=== PATIENT | male | born 1980 | race Caucasian/White ===

== ENCOUNTER 2023-08-03 18:47 | Inpatient (IN) ==
[2023-08-03] MEDS ORDERED: IOPAMIDOL 100 ML BOTTLE IV ONE (18:48)
[2023-08-03] MEDS: ONDANSETRON 4 MG/2 ML VIAL IV ONE (19:20)
[2023-08-03] MEDS: 0.9 % SODIUM CHLORIDE 1,000 ML IV ONE (19:20)
[2023-08-03] MEDS: morphine 4 MG/ML VIAL IV ONE (19:22)
[2023-08-03 19:42] LABS: Basophils # (Auto) 0.03 K/mcL (0.00-0.30); Basophils % (Auto) 0.1 % (0.0-2.0); Eosinophils # (Auto) 0.22 K/mcL (0.00-0.70); Eosinophils % (Auto) 0.8 % (0.0-7.0); Hematocrit 50.8 % (40.1-51.0); Hemoglobin 16.3 g/dL (13.7-17.5); Lymphocytes # (Auto) 0.94 K/mcL (1.50-4.80); Lymphocytes % (Auto) 3.4 % (15.5-49.0); Mean Cell Volume 88.5 fL (80.0-100.0); Mean Corpuscular HGB Conc 32.1 g/dL (31.0-36.0); Mean Platelet Volume 10.6 fL (8.8-12.5); Monocytes # (Auto) 1.28 K/mcL (0.10-0.90); Monocytes % (Auto) 4.6 % (1.0-12.0); Neutrophils % (Auto) 90.8 % (38.0-78.0); Platelet Count 370 K/mcL (140-440); RBC 5.74 M/mcL (4.63-6.08); WBC 27.7 K/mcL (4.5-11.0)
[2023-08-03 19:46] LABS: POC Calcium, Ionized 1.09 (1.16-1.32); POC Potassium 4.7 (3.3-5.1)
[2023-08-03 20:02] LABS: ALT/SGPT 26 U/L (<40); AST/SGOT 30 U/L (<40); Albumin 3.5 gm/dL (3.2-5.2); Albumin/Globulin Ratio 0.7 (1.0-2.3); Alkaline Phosphatase 202 U/L (39-117); Bilirubin,Total 0.3 mg/dL (0.1-1.0); Blood Urea Nitrogen 10 mg/dL (6-20); Calcium 9.4 mg/dL (8.6-10.4); Carbon Dioxide 20 mmol/L (22-30); Chloride 105 mmol/L (96-108); Globulin 4.7 gm/dL (2.2-3.7); Glomerular Filtration Rate 90; Glucose 130 mg/dL (70-105)
[2023-08-03 22:12] LABS: Appearance,Urine Slightly Cloudy (Clear); Bacteria,Urine 0 /hpf (0); Bilirubin,Urine Negative (Negative); Color,Urine Yellow; Culture Indicated,Urine Yes; Glucose,Urine (UA) Negative (Negative); Ketones,Urine Negative (Negative); Leukocyte Esterase,Urine Small /uL (Negative); Mucus,Urine Mod /hpf; Nitrate,Urine Negative (Negative); PH,Urine 5.5 (5.0-9.0); Protein,Urine 30 mg/dL (Negative); Specific Gravity,Urine <= 1.005 (1.000-1.035); Urine Blood Moderate ery/mcL (Negative); Urine RBC 0 /hpf (0-3); Urine Squamous Epithelial Cell 1 /hpf (0-4); Urine WBC > 182 /hpf (0-4); Urobilinogen,Urine Normal
[2023-08-03] MEDS ORDERED: BISACODYL 10 MG SUPP.RECT PR PRN (23:28)
[2023-08-03] MEDS ORDERED: MAGNESIUM SULFATE 2 GM/50 ML BAG IV PRN (23:28)
[2023-08-03] MEDS ORDERED: ONDANSETRON 4 MG/2 ML VIAL IV PRN (23:28)
[2023-08-03] MEDS ORDERED: POTASSIUM CHLORIDE 40 MEQ in DEXTROSE 5% IN WATER 500 ML IV PRN (23:28)
[2023-08-03] MEDS: LACTATED RINGERS 1,000 ML IV SCH (23:31)
[2023-08-04 00:13] LABS: C-Reactive Protein 7.65 mg/dL (0.03-0.80)
[2023-08-04] MEDS: ACETAMINOPHEN 650 MG/65 ML BAG IV PRN (01:20)
[2023-08-04] MEDS: ACETAMINOPHEN 1,000 MG/100 ML BAG IV ONE (01:27)
[2023-08-04] MEDS: 0.9 % SODIUM CHLORIDE 10 ML SYRINGE IV SCH ×2 (05:43→22:04)
[2023-08-04 06:45] LABS: Basophils # (Auto) 0.05 K/mcL (0.00-0.30); Basophils % (Auto) 0.3 % (0.0-2.0); Eosinophils # (Auto) 0.47 K/mcL (0.00-0.70); Eosinophils % (Auto) 3.3 % (0.0-7.0); Hematocrit 46.3 % (40.1-51.0); Hemoglobin 14.4 g/dL (13.7-17.5); Lymphocytes % (Auto) 11.8 % (15.5-49.0); Mean Cell Volume 91.1 fL (80.0-100.0); Mean Corpuscular HGB Conc 31.1 g/dL (31.0-36.0); Mean Platelet Volume 10.7 fL (8.8-12.5); Monocytes # (Auto) 0.78 K/mcL (0.10-0.90); Monocytes % (Auto) 5.4 % (1.0-12.0); Neutrophils % (Auto) 78.9 % (38.0-78.0); Platelet Count 318 K/mcL (140-440); RBC 5.08 M/mcL (4.63-6.08); Red Cell Distribution Width 15.1 % (11.5-14.5); WBC 14.5 K/mcL (4.5-11.0)
[2023-08-04 06:59] LABS: ALT/SGPT 35 U/L (<40); AST/SGOT 42 U/L (<40); Albumin/Globulin Ratio 0.7 (1.0-2.3); Alkaline Phosphatase 184 U/L (39-117); Bilirubin,Direct < 0.2 mg/dL (0-0.3); Bilirubin,Total 0.4 mg/dL (0.1-1.0); Blood Urea Nitrogen 11 mg/dL (6-20); Carbon Dioxide 20 mmol/L (22-30); Chloride 103 mmol/L (96-108); Globulin 4.2 gm/dL (2.2-3.7); Glomerular Filtration Rate 107; Glucose 78 mg/dL (70-105); Lactate Dehydrogenase 156 U/L (135-225); Phosphorous 3.5 mg/dL (2.5-4.5); Triglycerides 144 mg/dL (<150); Uric Acid 6.8 mg/dL (2.5-8.0)
[2023-08-04] MEDS: HYDROmorphone 0.5 MG/0.5 ML SYRINGE IV PRN (08:56)
[2023-08-04] MEDS: ACETAMINOPHEN 325 MG TABLET PO PRN (08:57)
[2023-08-04] MEDS: MULTIVIT,THER IRON,CA,FA & MIN 1 TABLET PO SCH (08:57)
[2023-08-04] MEDS: ENOXAPARIN 40 MG/0.4 ML SYRINGE SQ SCH (08:57)
[2023-08-04] MEDS ORDERED: 0.9 % SODIUM CHLORIDE 10 ML SYRINGE IV PRN (12:46)
[2023-08-04] MEDS ORDERED: NITROGLYCERIN 0.4 MG TAB.SUBL SL PRN (13:13)
[2023-08-04] MEDS ORDERED: HYDROcodone/APAP 10/325MG TABLET PO PRN (13:13)
[2023-08-04] MEDS ORDERED: ERTAPENEM 1 GM VIAL IV SCH (13:15)
[2023-08-04] MEDS: ERTAPENEM 1 GM in 0.9 % SODIUM CHLORIDE 50 ML IV SCH (14:19)
[2023-08-04] MEDS: ONDANSETRON 4 MG ODT TABLET SL PRN (18:05)
[2023-08-04] MEDS: traZODone HCL 50 MG TABLET PO SCH (22:03)
[2023-08-04] MEDS: METOPROLOL TARTRATE 25 MG TABLET PO SCH (22:03)
[2023-08-04] MEDS: GABAPENTIN 300 MG CAPSULE PO SCH (22:04)
[2023-08-05] MEDS: SERTRALINE 100 MG TABLET PO SCH (08:11)
[2023-08-05] MEDS: PANTOPRAZOLE 40 MG TABLET PO SCH (08:11)
[2023-08-05] MEDS: FOLIC ACID 1 MG TABLET PO SCH (08:11)
[2023-08-05 08:45] LABS: Basophils # (Auto) 0.02 K/mcL (0.00-0.30); Basophils % (Auto) 0.2 % (0.0-2.0); Eosinophils # (Auto) 0.32 K/mcL (0.00-0.70); Eosinophils % (Auto) 3.3 % (0.0-7.0); Hematocrit 36.1 % (40.1-51.0); Hemoglobin 11.4 g/dL (13.7-17.5); Lymphocytes # (Auto) 1.38 K/mcL (1.50-4.80); Lymphocytes % (Auto) 14.2 % (15.5-49.0); Mean Cell Volume 90.3 fL (80.0-100.0); Mean Corpuscular HGB Conc 31.6 g/dL (31.0-36.0); Mean Platelet Volume 10.4 fL (8.8-12.5); Monocytes # (Auto) 0.79 K/mcL (0.10-0.90); Monocytes % (Auto) 8.1 % (1.0-12.0); Platelet Count 275 K/mcL (140-440); Red Cell Distribution Width 14.8 % (11.5-14.5); WBC 9.7 K/mcL (4.5-11.0)
[2023-08-05 09:33] LABS: ALT/SGPT 26 U/L (<40); AST/SGOT 23 U/L (<40); Albumin 2.7 gm/dL (3.2-5.2); Albumin/Globulin Ratio 0.9 (1.0-2.3); Alkaline Phosphatase 133 U/L (39-117); Bilirubin,Direct < 0.2 mg/dL (0-0.3); Bilirubin,Total 0.3 mg/dL (0.1-1.0); Blood Urea Nitrogen 17 mg/dL (6-20); Carbon Dioxide 23 mmol/L (22-30); Chloride 105 mmol/L (96-108); Glomerular Filtration Rate 121; Glucose 69 mg/dL (70-105); Lactate Dehydrogenase 69 U/L (135-225); Triglycerides 162 mg/dL (<150); Uric Acid 5.5 mg/dL (2.5-8.0)
[2023-08-06 05:52] LABS: Basophils # (Auto) 0.03 K/mcL (0.00-0.30); Basophils % (Auto) 0.3 % (0.0-2.0); Eosinophils % (Auto) 3.6 % (0.0-7.0); Hematocrit 39.8 % (40.1-51.0); Hemoglobin 12.4 g/dL (13.7-17.5); Lymphocytes # (Auto) 1.86 K/mcL (1.50-4.80); Lymphocytes % (Auto) 16.6 % (15.5-49.0); Mean Cell Volume 91.5 fL (80.0-100.0); Mean Corpuscular HGB Conc 31.2 g/dL (31.0-36.0); Mean Platelet Volume 10.1 fL (8.8-12.5); Monocytes # (Auto) 0.83 K/mcL (0.10-0.90); Monocytes % (Auto) 7.4 % (1.0-12.0); Neutrophils % (Auto) 71.9 % (38.0-78.0); Platelet Count 278 K/mcL (140-440); RBC 4.35 M/mcL (4.63-6.08); Red Cell Distribution Width 14.3 % (11.5-14.5); WBC 11.2 K/mcL (4.5-11.0)
[2023-08-06 06:14] LABS: ALT/SGPT 15 U/L (<40); AST/SGOT 16 U/L (<40); Albumin/Globulin Ratio 0.9 (1.0-2.3); Alkaline Phosphatase 161 U/L (39-117); Bilirubin,Direct < 0.2 mg/dL (0-0.3); Bilirubin,Total < 0.2 mg/dL (0.1-1.0); Blood Urea Nitrogen 16 mg/dL (6-20); Calcium 8.5 mg/dL (8.6-10.4); Carbon Dioxide 24 mmol/L (22-30); Chloride 102 mmol/L (96-108); Globulin 3.4 gm/dL (2.2-3.7); Glomerular Filtration Rate 114; Glucose 92 mg/dL (70-105); Lactate Dehydrogenase 91 U/L (135-225); Triglycerides 207 mg/dL (<150); Uric Acid 5.3 mg/dL (2.5-8.0)
[2023-08-06] MEDS: HYDROmorphone 0.5 MG/0.5 ML SYRINGE IV PRN (14:48)
[2023-08-06] MEDS: oxyCODONE IR 5 MG TABLET PO PRN (17:17)
== END 2023-08-07 11:00 | DRG 389 ==
LOC: ED 18:47 → MEDSUR 23:24
PROVIDERS: ADMIT Internal Medicine; ATTEND Internal Medicine

== ENCOUNTER 2023-08-14 13:10 | Inpatient (IN) ==
[2023-08-14] MEDS ORDERED: IOPAMIDOL 100 ML BOTTLE IV ONE (13:11)
[2023-08-14] MEDS: morphine 4 MG/ML VIAL IV ONE ×2 (15:53→21:20)
[2023-08-14 16:20] LABS: Basophils # (Auto) 0.05 K/mcL (0.00-0.30); Basophils % (Auto) 0.2 % (0.0-2.0); Eosinophils # (Auto) 0.16 K/mcL (0.00-0.70); Eosinophils % (Auto) 0.8 % (0.0-7.0); Hematocrit 42.3 % (40.1-51.0); Hemoglobin 13.4 g/dL (13.7-17.5); Lymphocytes # (Auto) 1.15 K/mcL (1.50-4.80); Lymphocytes % (Auto) 5.7 % (15.5-49.0); Mean Cell Volume 89.4 fL (80.0-100.0); Mean Corpuscular HGB Conc 31.7 g/dL (31.0-36.0); Mean Platelet Volume 9.9 fL (8.8-12.5); Monocytes # (Auto) 0.98 K/mcL (0.10-0.90); Monocytes % (Auto) 4.9 % (1.0-12.0); Neutrophils % (Auto) 88.1 % (38.0-78.0); Platelet Count 427 K/mcL (140-440); RBC 4.73 M/mcL (4.63-6.08); Red Cell Distribution Width 14.6 % (11.5-14.5); WBC 20.1 K/mcL (4.5-11.0)
[2023-08-14 16:34] LABS: Blood Urea Nitrogen 9 mg/dL (6-20); Calcium 8.6 mg/dL (8.6-10.4); Carbon Dioxide 24 mmol/L (22-30); Chloride 100 mmol/L (96-108); Glomerular Filtration Rate 102; Glucose 78 mg/dL (70-105)
[2023-08-14 18:29] LABS: Appearance,Urine Turbid (Clear); Bacteria,Urine Many /hpf (0); Bilirubin,Urine Negative (Negative); Color,Urine Yellow; Culture Indicated,Urine Yes; Glucose,Urine (UA) Negative (Negative); Ketones,Urine Negative (Negative); Leukocyte Esterase,Urine Moderate /uL (Negative); Nitrate,Urine Negative (Negative); PH,Urine 5.5 (5.0-9.0); Protein,Urine 100 mg/dL (Negative); Urine Blood Moderate ery/mcL (Negative); Urine RBC 1 /hpf (0-3); Urine Squamous Epithelial Cell 1 /hpf (0-4); Urine WBC > 182 /hpf (0-4); Urobilinogen,Urine Normal
[2023-08-14] MEDS: cefTRIAXone 1 GM VIAL IV ONE (19:44)
[2023-08-14] MEDS: ONDANSETRON 4 MG/2 ML VIAL IV ONE (21:21)
[2023-08-14] MEDS ORDERED: ACETAMINOPHEN 325 MG TABLET PO PRN (22:14)
[2023-08-14] MEDS ORDERED: PROCHLORPERAZINE 10 MG/2 ML VIAL IV PRN (22:14)
[2023-08-14] MEDS ORDERED: PROMETHAZINE 25 MG/ML VIAL IV PRN (22:14)
[2023-08-14] MEDS ORDERED: IPRATROPIUM/ALBUTEROL 3 ML AMPUL.NEB NEB PRN (22:14)
[2023-08-14] MEDS: 0.9 % SODIUM CHLORIDE 10 ML SYRINGE IV SCH (22:18)
[2023-08-14] MEDS: DOCUSATE SODIUM 100 MG CAPSULE PO SCH (22:27)
[2023-08-14] MEDS: SENNOSIDES 1 TABLET PO SCH (22:27)
[2023-08-14] MEDS: PIPERACILLIN SODIUM/TAZOBACTAM 3.375 GM in DEXTROSE 5% IN WATER 50 ML IV SCH (23:18)
[2023-08-15] MEDS: morphine 4 MG/ML VIAL IV PRN (01:01)
[2023-08-15] MEDS: morphine 4 MG/ML VIAL ONE ×2 (01:01→05:05)
[2023-08-15 06:40] LABS: Basophils # (Auto) 0.05 K/mcL (0.00-0.30); Basophils % (Auto) 0.5 % (0.0-2.0); Eosinophils # (Auto) 0.31 K/mcL (0.00-0.70); Eosinophils % (Auto) 2.9 % (0.0-7.0); Hematocrit 40.3 % (40.1-51.0); Hemoglobin 12.9 g/dL (13.7-17.5); Lymphocytes # (Auto) 1.06 K/mcL (1.50-4.80); Lymphocytes % (Auto) 9.8 % (15.5-49.0); Mean Cell Volume 89.2 fL (80.0-100.0); Mean Platelet Volume 9.7 fL (8.8-12.5); Monocytes # (Auto) 0.77 K/mcL (0.10-0.90); Monocytes % (Auto) 7.1 % (1.0-12.0); Neutrophils % (Auto) 79.4 % (38.0-78.0); Platelet Count 336 K/mcL (140-440); RBC 4.52 M/mcL (4.63-6.08); Red Cell Distribution Width 14.6 % (11.5-14.5); WBC 10.9 K/mcL (4.5-11.0)
[2023-08-15 07:01] LABS: ALT/SGPT 112 U/L (<40); AST/SGOT 152 U/L (<40); Albumin/Globulin Ratio 0.8 (1.0-2.3); Alkaline Phosphatase 340 U/L (39-117); Bilirubin,Total 0.7 mg/dL (0.1-1.0); Blood Urea Nitrogen 8 mg/dL (6-20); Calcium 8.6 mg/dL (8.6-10.4); Carbon Dioxide 26 mmol/L (22-30); Chloride 101 mmol/L (96-108); Globulin 3.6 gm/dL (2.2-3.7); Glomerular Filtration Rate 107; Glucose 83 mg/dL (70-105)
[2023-08-15] MEDS: ENOXAPARIN 40 MG/0.4 ML SYRINGE SQ SCH (09:01)
[2023-08-15] MEDS: ONDANSETRON 4 MG/2 ML VIAL IV PRN (12:32)
[2023-08-15] MEDS ORDERED: NITROGLYCERIN 0.4 MG TAB.SUBL SL PRN (12:44)
[2023-08-15] MEDS: PIPERACILLIN SODIUM/TAZOBACTAM 3.375 GM in DEXTROSE 5% IN WATER 100 ML IV SCH (13:45)
[2023-08-15] MEDS: oxyCODONE/APAP 10/325MG TABLET PO PRN (17:29)
[2023-08-15] MEDS ORDERED: hydrALAZINE 20 MG/ML VIAL IV PRN (20:13)
[2023-08-15] MEDS: METOPROLOL TARTRATE 25 MG TABLET PO SCH (21:38)
[2023-08-15] MEDS: GABAPENTIN 300 MG CAPSULE PO SCH (21:38)
[2023-08-15] MEDS: KETOROLAC 30 MG/ML VIAL IV PRN (21:45)
[2023-08-15] MEDS: traZODone HCL 50 MG TABLET PO SCH (22:24)
[2023-08-16 07:11] LABS: Basophils # (Auto) 0.06 K/mcL (0.00-0.30); Basophils % (Auto) 0.5 % (0.0-2.0); Eosinophils # (Auto) 0.42 K/mcL (0.00-0.70); Eosinophils % (Auto) 3.7 % (0.0-7.0); Hematocrit 41.3 % (40.1-51.0); Hemoglobin 12.9 g/dL (13.7-17.5); Lymphocytes # (Auto) 1.35 K/mcL (1.50-4.80); Mean Cell Volume 90.4 fL (80.0-100.0); Mean Corpuscular HGB Conc 31.2 g/dL (31.0-36.0); Mean Platelet Volume 10.1 fL (8.8-12.5); Monocytes # (Auto) 0.73 K/mcL (0.10-0.90); Monocytes % (Auto) 6.5 % (1.0-12.0); Platelet Count 432 K/mcL (140-440); RBC 4.57 M/mcL (4.63-6.08); Red Cell Distribution Width 14.4 % (11.5-14.5); WBC 11.2 K/mcL (4.5-11.0)
[2023-08-16 07:23] LABS: ALT/SGPT 96 U/L (<40); AST/SGOT 82 U/L (<40); Albumin 3.2 gm/dL (3.2-5.2); Albumin/Globulin Ratio 0.9 (1.0-2.3); Alkaline Phosphatase 356 U/L (39-117); Bilirubin,Total 0.2 mg/dL (0.1-1.0); Blood Urea Nitrogen 14 mg/dL (6-20); Calcium 8.8 mg/dL (8.6-10.4); Carbon Dioxide 29 mmol/L (22-30); Chloride 101 mmol/L (96-108); Globulin 3.7 gm/dL (2.2-3.7); Glomerular Filtration Rate 90; Glucose 103 mg/dL (70-105)
[2023-08-16] MEDS: PANTOPRAZOLE 40 MG TABLET PO SCH (07:30)
[2023-08-16] MEDS: FOLIC ACID 1 MG TABLET PO SCH (09:26)
[2023-08-16] MEDS: SERTRALINE 100 MG TABLET PO SCH (09:26)
[2023-08-17 07:30] LABS: Basophils # (Auto) 0.06 K/mcL (0.00-0.30); Basophils % (Auto) 0.5 % (0.0-2.0); Eosinophils # (Auto) 0.61 K/mcL (0.00-0.70); Eosinophils % (Auto) 4.7 % (0.0-7.0); Hematocrit 40.6 % (40.1-51.0); Hemoglobin 12.6 g/dL (13.7-17.5); Lymphocytes # (Auto) 1.76 K/mcL (1.50-4.80); Lymphocytes % (Auto) 13.5 % (15.5-49.0); Mean Cell Volume 91.6 fL (80.0-100.0); Mean Platelet Volume 9.9 fL (8.8-12.5); Monocytes # (Auto) 0.81 K/mcL (0.10-0.90); Monocytes % (Auto) 6.2 % (1.0-12.0); Neutrophils % (Auto) 74.9 % (38.0-78.0); Platelet Count 412 K/mcL (140-440); RBC 4.43 M/mcL (4.63-6.08); Red Cell Distribution Width 14.4 % (11.5-14.5)
[2023-08-17 07:43] LABS: ALT/SGPT 88 U/L (<40); AST/SGOT 97 U/L (<40); Albumin 3.2 gm/dL (3.2-5.2); Albumin/Globulin Ratio 0.9 (1.0-2.3); Alkaline Phosphatase 342 U/L (39-117); Bilirubin,Total < 0.2 mg/dL (0.1-1.0); Blood Urea Nitrogen 14 mg/dL (6-20); Calcium 8.6 mg/dL (8.6-10.4); Carbon Dioxide 28 mmol/L (22-30); Chloride 102 mmol/L (96-108); Globulin 3.7 gm/dL (2.2-3.7); Glomerular Filtration Rate 80; Glucose 72 mg/dL (70-105)
[2023-08-17] MEDS: LIDOCAINE 4% TOP PATCH TOPICAL SCH (11:43)
[2023-08-17] MEDS: KETOROLAC 30 MG/ML VIAL IV PRN (18:33)
[2023-08-18 05:46] LABS: Basophils # (Auto) 0.08 K/mcL (0.00-0.30); Basophils % (Auto) 0.6 % (0.0-2.0); Eosinophils # (Auto) 0.67 K/mcL (0.00-0.70); Eosinophils % (Auto) 5.2 % (0.0-7.0); Hemoglobin 11.9 g/dL (13.7-17.5); Lymphocytes # (Auto) 1.87 K/mcL (1.50-4.80); Lymphocytes % (Auto) 14.6 % (15.5-49.0); Mean Cell Volume 91.6 fL (80.0-100.0); Mean Corpuscular HGB Conc 31.3 g/dL (31.0-36.0); Mean Platelet Volume 9.7 fL (8.8-12.5); Monocytes # (Auto) 0.78 K/mcL (0.10-0.90); Monocytes % (Auto) 6.1 % (1.0-12.0); Neutrophils % (Auto) 73.2 % (38.0-78.0); Platelet Count 390 K/mcL (140-440); RBC 4.15 M/mcL (4.63-6.08); Red Cell Distribution Width 14.5 % (11.5-14.5); WBC 12.9 K/mcL (4.5-11.0)
[2023-08-18 06:28] LABS: ALT/SGPT 53 U/L (<40); AST/SGOT 33 U/L (<40); Albumin 3.1 gm/dL (3.2-5.2); Albumin/Globulin Ratio 0.9 (1.0-2.3); Alkaline Phosphatase 259 U/L (39-117); Bilirubin,Total < 0.2 mg/dL (0.1-1.0); Blood Urea Nitrogen 12 mg/dL (6-20); Calcium 8.5 mg/dL (8.6-10.4); Carbon Dioxide 27 mmol/L (22-30); Chloride 103 mmol/L (96-108); Globulin 3.3 gm/dL (2.2-3.7); Glomerular Filtration Rate 102; Glucose 81 mg/dL (70-105)
[2023-08-18] MEDS ORDERED: LIDOCAINE 4% TOP PATCH TOPICAL SCH (10:00)
== END 2023-08-18 11:04 | DRG 689 ==
LOC: ED 13:10 → MEDSUR 21:54
PROVIDERS: ADMIT Internal Medicine; ATTEND Internal Medicine

== ENCOUNTER 2024-01-07 21:41 | Inpatient (IN) ==
[2024-01-07] MEDS ORDERED: IOPAMIDOL 100 ML BOTTLE IV ONE (21:42)
[2024-01-07] MEDS: SODIUM CHLORIDE IV ONE (22:41)
[2024-01-07] MEDS: morphine 4 MG/ML VIAL IV ONE (23:00)
[2024-01-07] MEDS: ONDANSETRON 4 MG/2 ML VIAL IV ONE (23:00)
[2024-01-07 23:08] LABS: Basophils # (Auto) 0.06 K/mcL (0.00-0.30); Basophils % (Auto) 0.2 % (0.0-2.0); Eosinophils # (Auto) 0.65 K/mcL (0.00-0.70); Eosinophils % (Auto) 2.7 % (0.0-7.0); Hematocrit 32.7 % (40.1-51.0); Hemoglobin 10.9 g/dL (13.7-17.5); Lymphocytes # (Auto) 1.94 K/mcL (1.50-4.80); Lymphocytes % (Auto) 7.9 % (15.5-49.0); Mean Cell Volume 83.2 fL (80.0-100.0); Mean Corpuscular HGB Conc 33.3 g/dL (31.0-36.0); Mean Platelet Volume 9.8 fL (8.8-12.5); Monocytes # (Auto) 1.29 K/mcL (0.10-0.90); Monocytes % (Auto) 5.3 % (1.0-12.0); Neutrophils % (Auto) 83.7 % (38.0-78.0); Platelet Count 570 K/mcL (140-440); RBC 3.93 M/mcL (4.63-6.08); Red Cell Distribution Width 15.6 % (11.5-14.5); WBC 24.4 K/mcL (4.5-11.0)
[2024-01-07] MEDS: VANCOMYCIN 2,000 MG in 0.9 % SODIUM CHLORIDE 500 ML IV ONE (23:20)
[2024-01-07 23:22] LABS: Creatine Kinase 33 U/L (24-195)
[2024-01-07 23:27] LABS: ALT/SGPT 69 U/L (<40); AST/SGOT 59 U/L (<40); Albumin 3.5 gm/dL (3.2-5.2); Albumin/Globulin Ratio 0.8 (1.0-2.3); Alkaline Phosphatase 168 U/L (39-117); Bilirubin,Total < 0.2 mg/dL (0.1-1.0); Blood Urea Nitrogen 19 mg/dL (6-20); Calcium 8.7 mg/dL (8.6-10.4); Carbon Dioxide 25 mmol/L (22-30); Chloride 103 mmol/L (96-108); Globulin 4.5 gm/dL (2.2-3.7); Glomerular Filtration Rate 80; Glucose 106 mg/dL (70-105); Potassium 3.6 mmol/L (3.3-5.1); Prothrombin Time 13.4 sec (11.9-14.5); Sodium 140 mmol/L (133-145)
[2024-01-08 00:23] LABS: Appearance,Urine Clear (Clear); Bacteria,Urine Mod /hpf (0); Bilirubin,Urine Negative (Negative); Color,Urine Yellow; Culture Indicated,Urine Yes; Glucose,Urine (UA) Negative (Negative); Ketones,Urine Negative (Negative); Leukocyte Esterase,Urine Moderate /uL (Negative); Nitrate,Urine Negative (Negative); Protein,Urine >=300 mg/dL (Negative); Specific Gravity,Urine 1.025 (1.000-1.035); Urine Blood Large ery/mcL (Negative); Urine RBC 20 /hpf (0-3); Urine Squamous Epithelial Cell 0 /hpf (0-4); Urine WBC > 182 /hpf (0-4); Urobilinogen,Urine Normal
[2024-01-08] MEDS: METOCLOPRAMIDE 10 MG/2 ML VIAL IV ONE (01:00)
[2024-01-08] MEDS: morphine 4 MG/ML VIAL IV ONE (01:00)
[2024-01-08] MEDS ORDERED: ONDANSETRON 4 MG/2 ML VIAL IV PRN (03:18)
[2024-01-08] MEDS: CEFEPIME 2 GM VIAL IV ONE (04:09)
[2024-01-08] MEDS: morphine 4 MG/ML VIAL IV PRN (04:38)
[2024-01-08] MEDS: 0.9 % SODIUM CHLORIDE 1,000 ML IV SCH (04:41)
[2024-01-08] MEDS ORDERED: PROMETHAZINE 25 MG TABLET PO PRN (08:04)
[2024-01-08] MEDS ORDERED: NITROGLYCERIN 0.4 MG TAB.SUBL SL PRN (08:04)
[2024-01-08] MEDS ORDERED: CALCIUM CARBONATE 500 MG TAB.CHEW CHEWED PRN (08:12)
[2024-01-08] MEDS ORDERED: ONDANSETRON 4 MG ODT TABLET SL PRN (08:14)
[2024-01-08] MEDS ORDERED: ACETAMINOPHEN 325 MG TABLET PO PRN (08:22)
[2024-01-08] MEDS ORDERED: IPRATROPIUM/ALBUTEROL 3 ML AMPUL.NEB NEB PRN (08:22)
[2024-01-08] MEDS: LACTOBACILLUS 1 CAPSULE PO SCH (08:42)
[2024-01-08] MEDS: SERTRALINE 50 MG TABLET PO SCH (08:42)
[2024-01-08] MEDS: METOCLOPRAMIDE 10 MG TABLET PO SCH (08:43)
[2024-01-08] MEDS: morphine 30 MG TAB.SR.12H PO SCH (08:43)
[2024-01-08] MEDS: FOLIC ACID 1 MG TABLET PO SCH (08:43)
[2024-01-08] MEDS: DOCUSATE SODIUM 100 MG CAPSULE PO SCH (08:43)
[2024-01-08] MEDS: METOPROLOL TARTRATE 25 MG TABLET PO SCH (08:44)
[2024-01-08] MEDS: ENOXAPARIN 40 MG/0.4 ML SYRINGE SQ SCH (08:44)
[2024-01-08] MEDS: GABAPENTIN 300 MG CAPSULE PO SCH (08:44)
[2024-01-08] MEDS: PIPERACILLIN SODIUM/TAZOBACTAM 3.375 GM in DEXTROSE 5% IN WATER 50 ML IV ONE (08:45)
[2024-01-08] MEDS: PANTOPRAZOLE 40 MG TABLET PO SCH (08:45)
[2024-01-08] MEDS: FLUCONAZOLE 400 MG/200 ML BAG IV SCH (10:11)
[2024-01-08] MEDS: 0.9 % SODIUM CHLORIDE 10 ML SYRINGE IV SCH (13:15)
[2024-01-08] MEDS: PIPERACILLIN SODIUM/TAZOBACTAM 3.375 GM in DEXTROSE 5% IN WATER 100 ML IV SCH (14:10)
[2024-01-08] MEDS: oxyCODONE/APAP 10/325MG TABLET PO PRN (17:28)
[2024-01-08] MEDS: SENNOSIDES 1 TABLET PO SCH (21:00)
[2024-01-08] MEDS ORDERED: traZODone HCL 50 MG TABLET PO SCH (21:00)
[2024-01-08] MEDS: MELATONIN 3 MG TABLET PO SCH (23:35)
[2024-01-09 06:41] LABS: Basophils # (Auto) 0.05 K/mcL (0.00-0.30); Basophils % (Auto) 0.3 % (0.0-2.0); Eosinophils # (Auto) 1.26 K/mcL (0.00-0.70); Eosinophils % (Auto) 8.8 % (0.0-7.0); Hemoglobin 8.5 g/dL (13.7-17.5); Lymphocytes # (Auto) 1.54 K/mcL (1.50-4.80); Lymphocytes % (Auto) 10.7 % (15.5-49.0); Mean Cell Volume 86.8 fL (80.0-100.0); Mean Corpuscular HGB Conc 31.5 g/dL (31.0-36.0); Mean Platelet Volume 9.8 fL (8.8-12.5); Monocytes # (Auto) 1.05 K/mcL (0.10-0.90); Monocytes % (Auto) 7.3 % (1.0-12.0); Neutrophils % (Auto) 72.8 % (38.0-78.0); Platelet Count 410 K/mcL (140-440); RBC 3.11 M/mcL (4.63-6.08); Red Cell Distribution Width 16.1 % (11.5-14.5); WBC 14.3 K/mcL (4.5-11.0)
[2024-01-09 07:01] LABS: ALT/SGPT 31 U/L (<40); AST/SGOT 26 U/L (<40); Albumin 2.8 gm/dL (3.2-5.2); Albumin/Globulin Ratio 0.8 (1.0-2.3); Alkaline Phosphatase 131 U/L (39-117); Bilirubin,Total 0.2 mg/dL (0.1-1.0); Blood Urea Nitrogen 12 mg/dL (6-20); Calcium 8.4 mg/dL (8.6-10.4); Carbon Dioxide 20 mmol/L (22-30); Chloride 111 mmol/L (96-108); Globulin 3.4 gm/dL (2.2-3.7); Glomerular Filtration Rate 102; Glucose 75 mg/dL (70-105); Potassium 4.1 mmol/L (3.3-5.1); Sodium 141 mmol/L (133-145)
[2024-01-09] MEDS: ONDANSETRON 4 MG/2 ML VIAL IV PRN (09:02)
[2024-01-10 06:32] LABS: Basophils # (Auto) 0.07 K/mcL (0.00-0.30); Basophils % (Auto) 0.4 % (0.0-2.0); Eosinophils % (Auto) 7.7 % (0.0-7.0); Hematocrit 27.9 % (40.1-51.0); Hemoglobin 8.7 g/dL (13.7-17.5); Lymphocytes # (Auto) 1.82 K/mcL (1.50-4.80); Lymphocytes % (Auto) 10.7 % (15.5-49.0); Mean Cell Volume 87.2 fL (80.0-100.0); Mean Corpuscular HGB Conc 31.2 g/dL (31.0-36.0); Monocytes # (Auto) 1.03 K/mcL (0.10-0.90); Monocytes % (Auto) 6.1 % (1.0-12.0); Neutrophils % (Auto) 74.9 % (38.0-78.0); Platelet Count 449 K/mcL (140-440); Red Cell Distribution Width 16.4 % (11.5-14.5)
[2024-01-10 06:46] LABS: Phosphorous 4.2 mg/dL (2.5-4.5)
[2024-01-10 06:48] LABS: ALT/SGPT 21 U/L (<40); AST/SGOT 20 U/L (<40); Albumin/Globulin Ratio 0.8 (1.0-2.3); Alkaline Phosphatase 148 U/L (39-117); Bilirubin,Total < 0.2 mg/dL (0.1-1.0); Blood Urea Nitrogen 10 mg/dL (6-20); Calcium 8.6 mg/dL (8.6-10.4); Carbon Dioxide 23 mmol/L (22-30); Chloride 107 mmol/L (96-108); Globulin 3.6 gm/dL (2.2-3.7); Glomerular Filtration Rate 90; Glucose 78 mg/dL (70-105); Potassium 3.9 mmol/L (3.3-5.1); Sodium 139 mmol/L (133-145)
[2024-01-10] MEDS: morphine 4 MG/ML VIAL IV PRN (11:48)
[2024-01-10] MEDS: KETOROLAC 30 MG/ML VIAL IV PRN (14:07)
[2024-01-10] MEDS: ZOLPIDEM 5 MG TABLET PO PRN (23:34)
[2024-01-11 06:59] LABS: Basophils # (Auto) 0.06 K/mcL (0.00-0.30); Basophils % (Auto) 0.5 % (0.0-2.0); Eosinophils # (Auto) 1.02 K/mcL (0.00-0.70); Eosinophils % (Auto) 9.3 % (0.0-7.0); Hematocrit 27.3 % (40.1-51.0); Hemoglobin 8.5 g/dL (13.7-17.5); Lymphocytes # (Auto) 1.89 K/mcL (1.50-4.80); Lymphocytes % (Auto) 17.2 % (15.5-49.0); Mean Cell Volume 87.5 fL (80.0-100.0); Mean Corpuscular HGB Conc 31.1 g/dL (31.0-36.0); Monocytes % (Auto) 6.4 % (1.0-12.0); Neutrophils % (Auto) 66.4 % (38.0-78.0); Platelet Count 425 K/mcL (140-440); RBC 3.12 M/mcL (4.63-6.08); Red Cell Distribution Width 16.5 % (11.5-14.5)
[2024-01-11 07:34] LABS: Phosphorous 4.8 mg/dL (2.5-4.5)
[2024-01-11 07:53] LABS: ALT/SGPT 20 U/L (<40); AST/SGOT 19 U/L (<40); Albumin/Globulin Ratio 0.8 (1.0-2.3); Alkaline Phosphatase 135 U/L (39-117); Bilirubin,Total < 0.2 mg/dL (0.1-1.0); Blood Urea Nitrogen 10 mg/dL (6-20); Calcium 8.6 mg/dL (8.6-10.4); Carbon Dioxide 23 mmol/L (22-30); Chloride 108 mmol/L (96-108); Globulin 3.6 gm/dL (2.2-3.7); Glomerular Filtration Rate 80; Glucose 75 mg/dL (70-105); Potassium 4.4 mmol/L (3.3-5.1); Sodium 143 mmol/L (133-145)
== END 2024-01-11 13:35 | DRG 871 ==
LOC: ED 21:41 → MEDSUR 01-08 04:18
PROVIDERS: ADMIT Internal Medicine; ATTEND Internal Medicine

== ENCOUNTER 2024-05-26 17:29 | Inpatient (IN) ==
[2024-05-26] MEDS: PIPERACILLIN SODIUM/TAZOBACTAM 3.375 GM in DEXTROSE 5% IN WATER 50 ML IV SCH (18:02)
[2024-05-26 18:09] LABS: Basophils # (Auto) 0.03 K/mcL (0.00-0.30); Basophils % (Auto) 0.2 % (0.0-2.0); Eosinophils # (Auto) 0.29 K/mcL (0.00-0.70); Eosinophils % (Auto) 1.5 % (0.0-7.0); Hematocrit 43.4 % (40.1-51.0); Hemoglobin 13.6 g/dL (13.7-17.5); Lymphocytes # (Auto) 2.49 K/mcL (1.50-4.80); Lymphocytes % (Auto) 13.3 % (15.5-49.0); Mean Cell Volume 78.5 fL (80.0-100.0); Mean Corpuscular HGB Conc 31.3 g/dL (31.0-36.0); Mean Platelet Volume 9.5 fL (8.8-12.5); Monocytes # (Auto) 1.04 K/mcL (0.10-0.90); Monocytes % (Auto) 5.5 % (1.0-12.0); Platelet Count 591 K/mcL (140-440); RBC 5.53 M/mcL (4.63-6.08); Red Cell Distribution Width 17.9 % (11.5-14.5); WBC 18.8 K/mcL (4.5-11.0)
[2024-05-26 18:39] LABS: ALT/SGPT 30 U/L (<40); AST/SGOT 32 U/L (<40); Albumin 3.7 gm/dL (3.2-5.2); Albumin/Globulin Ratio 0.7 (1.0-2.3); Alkaline Phosphatase 233 U/L (39-117); Bilirubin,Total 0.2 mg/dL (0.1-1.0); Blood Urea Nitrogen 27 mg/dL (6-20); Calcium 9.9 mg/dL (8.6-10.4); Carbon Dioxide 20 mmol/L (22-30); Chloride 100 mmol/L (96-108); Globulin 5.1 gm/dL (2.2-3.7); Glomerular Filtration Rate 72; Glucose 98 mg/dL (70-105); Sodium 137 mmol/L (133-145)
[2024-05-26] MEDS: CEFEPIME 2 GM VIAL IV ONE (19:05)
[2024-05-26] MEDS: ONDANSETRON 4 MG/2 ML VIAL IV ONE (19:06)
[2024-05-26] MEDS: ACETAMINOPHEN 1,000 MG/100 ML BAG IV ONE (19:06)
[2024-05-26] MEDS: KETOROLAC 30 MG/ML VIAL IV ONE (19:24)
[2024-05-26] MEDS: SODIUM CHLORIDE IV ONE (19:24)
[2024-05-26] MEDS: HYDROmorphone 0.5 MG/0.5 ML SYRINGE IV ONE ×2 (20:08→22:13)
[2024-05-26 22:23] LABS: Appearance,Urine Clear (Clear); Bacteria,Urine Few /hpf (0); Bilirubin,Urine Negative (Negative); Color,Urine Yellow; Glucose,Urine (UA) Negative (Negative); Ketones,Urine Negative (Negative); Leukocyte Esterase,Urine Negative /uL (Negative); Nitrate,Urine Negative (Negative); PH,Urine 5.5 (5.0-9.0); Protein,Urine 100 mg/dL (Negative); Urine Blood Moderate ery/mcL (Negative); Urine RBC 3 /hpf (0-3); Urine Squamous Epithelial Cell 0 /hpf (0-4); Urine WBC 21 /hpf (0-4); Urobilinogen,Urine Normal
[2024-05-26 22:23] LABS: Appearance,Urine Clear (Clear); Bacteria,Urine Few /hpf (0); Bilirubin,Urine Negative (Negative); Color,Urine Yellow; Glucose,Urine (UA) Negative (Negative); Ketones,Urine Negative (Negative); Leukocyte Esterase,Urine Negative /uL (Negative); Nitrate,Urine Positive (Negative); PH,Urine 5.5 (5.0-9.0); Protein,Urine 100 mg/dL (Negative); Urine Blood Large ery/mcL (Negative); Urine RBC 11 /hpf (0-3); Urine Squamous Epithelial Cell 0 /hpf (0-4); Urine WBC 27 /hpf (0-4); Urobilinogen,Urine Normal
[2024-05-26] MEDS ORDERED: LACTULOSE 20 GM/30 ML ORAL.SOL PO PRN (23:01)
[2024-05-26] MEDS ORDERED: SENNOSIDES 1 TABLET PO PRN (23:01)
[2024-05-26] MEDS ORDERED: ACETAMINOPHEN 325 MG TABLET PO PRN (23:01)
[2024-05-26] MEDS: CEFEPIME 2 GM VIAL IV SCH (23:22)
[2024-05-26] MEDS: 0.9 % SODIUM CHLORIDE 10 ML SYRINGE IV SCH (23:24)
[2024-05-26] MEDS: 0.9 % SODIUM CHLORIDE 1,000 ML IV SCH (23:31)
[2024-05-26 23:46] LABS: ALT/SGPT 28 U/L (<40); AST/SGOT 31 U/L (<40); Albumin 3.1 gm/dL (3.2-5.2); Albumin/Globulin Ratio 0.8 (1.0-2.3); Alkaline Phosphatase 201 U/L (39-117); Bilirubin,Direct < 0.2 mg/dL (0-0.3); Bilirubin,Total < 0.2 mg/dL (0.1-1.0); Blood Urea Nitrogen 26 mg/dL (6-20); Calcium 8.8 mg/dL (8.6-10.4); Carbon Dioxide 18 mmol/L (22-30); Chloride 106 mmol/L (96-108); Globulin 4.1 gm/dL (2.2-3.7); Glomerular Filtration Rate 80; Glucose 100 mg/dL (70-105); Lactate Dehydrogenase 88 U/L (135-225); Phosphorous 4.6 mg/dL (2.5-4.5); Potassium 4.2 mmol/L (3.3-5.1); Sodium 136 mmol/L (133-145); Triglycerides 204 mg/dL (<150); Uric Acid 5.5 mg/dL (2.5-8.0)
[2024-05-26] MEDS: HYDROcodone/APAP 5/325MG TABLET PO PRN (23:51)
[2024-05-26] MEDS: metroNIDAZOLE 500 MG/100 ML BAG IV SCH (23:54)
[2024-05-27] MEDS: VANCOMYCIN 1,500 MG in 0.9 % SODIUM CHLORIDE 500 ML IV ONE (00:07)
[2024-05-27] MEDS: VANCOMYCIN PER PHARMACY IV ONE (00:08)
[2024-05-27] MEDS: HYDROcodone/APAP 5/325MG TABLET PO ONE (00:08)
[2024-05-27] MEDS: metroNIDAZOLE 100 ML IV ONE (00:09)
[2024-05-27] MEDS: HYDROmorphone 0.5 MG/0.5 ML SYRINGE IV PRN (00:38)
[2024-05-27] MEDS: HYDROmorphone 0.5 MG/0.5 ML SYRINGE ONE ×2 (02:15→05:28)
[2024-05-27 06:25] LABS: Basophils # (Auto) 0.02 K/mcL (0.00-0.30); Basophils % (Auto) 0.2 % (0.0-2.0); Eosinophils # (Auto) 0.49 K/mcL (0.00-0.70); Hematocrit 32.6 % (40.1-51.0); Lymphocytes # (Auto) 1.48 K/mcL (1.50-4.80); Lymphocytes % (Auto) 15.2 % (15.5-49.0); Mean Cell Volume 82.1 fL (80.0-100.0); Mean Corpuscular HGB Conc 30.7 g/dL (31.0-36.0); Mean Platelet Volume 9.7 fL (8.8-12.5); Monocytes # (Auto) 0.77 K/mcL (0.10-0.90); Monocytes % (Auto) 7.9 % (1.0-12.0); Neutrophils % (Auto) 71.2 % (38.0-78.0); Platelet Count 383 K/mcL (140-440); RBC 3.97 M/mcL (4.63-6.08); Red Cell Distribution Width 18.1 % (11.5-14.5); WBC 9.7 K/mcL (4.5-11.0)
[2024-05-27] MEDS ORDERED: VANCOMYCIN PER PHARMACY IV SCH (06:45)
[2024-05-27 06:53] LABS: ALT/SGPT 53 U/L (<40); AST/SGOT 69 U/L (<40); Albumin 2.9 gm/dL (3.2-5.2); Albumin/Globulin Ratio 0.8 (1.0-2.3); Alkaline Phosphatase 237 U/L (39-117); Bilirubin,Direct < 0.2 mg/dL (0-0.3); Bilirubin,Total < 0.2 mg/dL (0.1-1.0); Blood Urea Nitrogen 24 mg/dL (6-20); Calcium 8.5 mg/dL (8.6-10.4); Carbon Dioxide 17 mmol/L (22-30); Chloride 111 mmol/L (96-108); Globulin 3.5 gm/dL (2.2-3.7); Glomerular Filtration Rate 90; Glucose 81 mg/dL (70-105); Lactate Dehydrogenase 105 U/L (135-225); Phosphorous 3.9 mg/dL (2.5-4.5); Sodium 138 mmol/L (133-145); Triglycerides 195 mg/dL (<150); Uric Acid 5.5 mg/dL (2.5-8.0)
[2024-05-27] MEDS: PANTOPRAZOLE 40 MG TABLET PO SCH (06:56)
[2024-05-27] MEDS: GABAPENTIN 300 MG CAPSULE PO SCH (08:19)
[2024-05-27] MEDS: ENOXAPARIN 40 MG/0.4 ML SYRINGE SQ SCH (08:19)
[2024-05-27] MEDS: SERTRALINE 50 MG TABLET PO SCH (08:20)
[2024-05-27] MEDS: oxyCODONE/APAP 10/325MG TABLET PO PRN (08:21)
[2024-05-27] MEDS: VANCOMYCIN 750 MG in 0.9 % SODIUM CHLORIDE 250 ML IV SCH (09:35)
[2024-05-27] MEDS: ONDANSETRON 4 MG/2 ML VIAL IV PRN (11:18)
[2024-05-27] MEDS: MAG HYDROX/AL HYDROX/SIMETH 30 ML ORAL.SUSP PO PRN (11:53)
[2024-05-27] MEDS: traZODone HCL 50 MG TABLET PO SCH (21:06)
[2024-05-28 05:35] LABS: Basophils # (Auto) 0.02 K/mcL (0.00-0.30); Basophils % (Auto) 0.1 % (0.0-2.0); Eosinophils # (Auto) 0.61 K/mcL (0.00-0.70); Eosinophils % (Auto) 4.4 % (0.0-7.0); Hematocrit 32.7 % (40.1-51.0); Hemoglobin 9.9 g/dL (13.7-17.5); Lymphocytes # (Auto) 0.81 K/mcL (1.50-4.80); Lymphocytes % (Auto) 5.9 % (15.5-49.0); Mean Cell Volume 82.2 fL (80.0-100.0); Mean Corpuscular HGB Conc 30.3 g/dL (31.0-36.0); Mean Platelet Volume 9.5 fL (8.8-12.5); Monocytes # (Auto) 0.46 K/mcL (0.10-0.90); Monocytes % (Auto) 3.3 % (1.0-12.0); Neutrophils % (Auto) 85.9 % (38.0-78.0); Platelet Count 356 K/mcL (140-440); RBC 3.98 M/mcL (4.63-6.08); Red Cell Distribution Width 18.1 % (11.5-14.5); WBC 13.8 K/mcL (4.5-11.0)
[2024-05-28 05:56] LABS: ALT/SGPT 39 U/L (<40); AST/SGOT 34 U/L (<40); Albumin 2.9 gm/dL (3.2-5.2); Albumin/Globulin Ratio 0.8 (1.0-2.3); Alkaline Phosphatase 213 U/L (39-117); Bilirubin,Direct < 0.2 mg/dL (0-0.3); Bilirubin,Total < 0.2 mg/dL (0.1-1.0); Blood Urea Nitrogen 14 mg/dL (6-20); Calcium 8.7 mg/dL (8.6-10.4); Carbon Dioxide 18 mmol/L (22-30); Chloride 111 mmol/L (96-108); Globulin 3.5 gm/dL (2.2-3.7); Glomerular Filtration Rate 113; Glucose 88 mg/dL (70-105); Lactate Dehydrogenase 99 U/L (135-225); Potassium 3.5 mmol/L (3.3-5.1); Sodium 140 mmol/L (133-145); Triglycerides 184 mg/dL (<150); Uric Acid 5.1 mg/dL (2.5-8.0)
[2024-05-28] MEDS: VANCOMYCIN 1,250 MG in 0.9 % SODIUM CHLORIDE 500 ML IV SCH (17:35)
[2024-05-29 06:04] LABS: Basophils # (Auto) 0.02 K/mcL (0.00-0.30); Basophils % (Auto) 0.2 % (0.0-2.0); Hematocrit 34.2 % (40.1-51.0); Lymphocytes # (Auto) 1.23 K/mcL (1.50-4.80); Lymphocytes % (Auto) 10.5 % (15.5-49.0); Mean Cell Volume 84.4 fL (80.0-100.0); Mean Corpuscular HGB Conc 29.2 g/dL (31.0-36.0); Mean Platelet Volume 9.6 fL (8.8-12.5); Monocytes # (Auto) 0.72 K/mcL (0.10-0.90); Monocytes % (Auto) 6.2 % (1.0-12.0); Neutrophils % (Auto) 76.8 % (38.0-78.0); Platelet Count 396 K/mcL (140-440); RBC 4.05 M/mcL (4.63-6.08); Red Cell Distribution Width 18.2 % (11.5-14.5); WBC 11.7 K/mcL (4.5-11.0)
[2024-05-29] MEDS: 0.9 % SODIUM CHLORIDE 1,000 ML IV SCH (11:05)
[2024-05-29] MEDS: METOCLOPRAMIDE 10 MG/2 ML VIAL IV SCH (12:21)
[2024-05-29] MEDS: METOPROLOL TARTRATE 25 MG TABLET PO ONE (17:31)
[2024-05-30 07:38] LABS: ALT/SGPT 19 U/L (<40); AST/SGOT 17 U/L (<40); Albumin 2.9 gm/dL (3.2-5.2); Albumin/Globulin Ratio 0.8 (1.0-2.3); Alkaline Phosphatase 164 U/L (39-117); Bilirubin,Direct < 0.2 mg/dL (0-0.3); Bilirubin,Total < 0.2 mg/dL (0.1-1.0); Blood Urea Nitrogen 10 mg/dL (6-20); Calcium 8.8 mg/dL (8.6-10.4); Carbon Dioxide 20 mmol/L (22-30); Chloride 106 mmol/L (96-108); Globulin 3.7 gm/dL (2.2-3.7); Glomerular Filtration Rate 113; Glucose 78 mg/dL (70-105); Lactate Dehydrogenase 141 U/L (135-225); Phosphorous 2.5 mg/dL (2.5-4.5); Potassium 3.4 mmol/L (3.3-5.1); Sodium 137 mmol/L (133-145); Triglycerides 157 mg/dL (<150); Uric Acid 4.9 mg/dL (2.5-8.0)
[2024-05-30] MEDS: METOPROLOL TARTRATE 25 MG TABLET PO SCH (08:46)
[2024-05-30] MEDS: ACETAMINOPHEN 1,000 MG/100 ML BAG IV SCH (19:31)
[2024-05-30] MEDS: HYDROmorphone 0.5 MG/0.5 ML SYRINGE IV PRN (19:32)
[2024-05-31 05:57] LABS: Basophils # (Auto) 0.04 K/mcL (0.00-0.30); Basophils % (Auto) 0.2 % (0.0-2.0); Eosinophils % (Auto) 5.6 % (0.0-7.0); Hemoglobin 10.3 g/dL (13.7-17.5); Lymphocytes # (Auto) 1.42 K/mcL (1.50-4.80); Lymphocytes % (Auto) 8.9 % (15.5-49.0); Mean Cell Volume 82.1 fL (80.0-100.0); Mean Corpuscular HGB Conc 30.3 g/dL (31.0-36.0); Mean Platelet Volume 9.7 fL (8.8-12.5); Monocytes # (Auto) 1.17 K/mcL (0.10-0.90); Monocytes % (Auto) 7.3 % (1.0-12.0); Neutrophils % (Auto) 77.6 % (38.0-78.0); Platelet Count 398 K/mcL (140-440); RBC 4.14 M/mcL (4.63-6.08); Red Cell Distribution Width 18.1 % (11.5-14.5)
[2024-05-31] MEDS ORDERED: MEROPENEM 0.5 GM in 0.9 % SODIUM CHLORIDE 50 ML IV SCH (08:45)
[2024-05-31] MEDS: HYDROmorphone 0.5 MG/0.5 ML SYRINGE IV PRN (08:56)
[2024-05-31 09:47] LABS: Appearance,Urine Slightly Cloudy (Clear); Bacteria,Urine Few /hpf (0); Bilirubin,Urine Negative (Negative); Color,Urine Yellow; Glucose,Urine (UA) Negative (Negative); Ketones,Urine Trace mg/dL (Negative); Leukocyte Esterase,Urine Small /uL (Negative); Mucus,Urine Mod /hpf; Nitrate,Urine Negative (Negative); Protein,Urine 100 mg/dL (Negative); Urine Blood Moderate ery/mcL (Negative); Urine Granular Cast 6 /lph (0-0); Urine Hyaline Cast 4 /lph (0-2); Urine RBC 2 /hpf (0-3); Urine Squamous Epithelial Cell 0 /hpf (0-4); Urine WBC 13 /hpf (0-4); Urobilinogen,Urine Normal
[2024-05-31] MEDS: MEROPENEM 1 GM in 0.9 % SODIUM CHLORIDE 50 ML IV SCH (10:06)
[2024-05-31 16:22] LABS: Appearance,Urine TURBID (Clear); Bilirubin,Urine Negative (Negative); Color,Urine RED; Glucose,Urine (UA) Negative (Negative); Ketones,Urine Negative (Negative); Leukocyte Esterase,Urine 250 /uL (Negative); Nitrate,Urine POS (Negative); Protein,Urine 100 mg/dL (Negative); Specific Gravity,Urine 1.031 (1.000-1.035); Sulfosalicylic Acid,Urine 2+ mg/dL (NEGATIVE); Urine Blood >=1.0 mg/dL (Negative); Urine RBC > 182 /hpf (0-1); Urine Squamous Epithelial Cell 0 /hpf (0-4); Urine WBC > 182 /hpf (0-4); Urobilinogen,Urine Negative
[2024-06-01 06:04] LABS: Basophils # (Auto) 0.06 K/mcL (0.00-0.30); Basophils % (Auto) 0.5 % (0.0-2.0); Eosinophils # (Auto) 1.16 K/mcL (0.00-0.70); Eosinophils % (Auto) 9.1 % (0.0-7.0); Hematocrit 34.5 % (40.1-51.0); Hemoglobin 10.6 g/dL (13.7-17.5); Lymphocytes # (Auto) 1.72 K/mcL (1.50-4.80); Lymphocytes % (Auto) 13.5 % (15.5-49.0); Mean Cell Volume 81.9 fL (80.0-100.0); Mean Corpuscular HGB Conc 30.7 g/dL (31.0-36.0); Mean Platelet Volume 9.7 fL (8.8-12.5); Monocytes # (Auto) 0.86 K/mcL (0.10-0.90); Monocytes % (Auto) 6.8 % (1.0-12.0); Neutrophils % (Auto) 69.6 % (38.0-78.0); Platelet Count 423 K/mcL (140-440); RBC 4.21 M/mcL (4.63-6.08); Red Cell Distribution Width 18.3 % (11.5-14.5); WBC 12.7 K/mcL (4.5-11.0)
[2024-06-01 06:21] LABS: ALT/SGPT 11 U/L (<40); AST/SGOT 12 U/L (<40); Albumin 3.1 gm/dL (3.2-5.2); Albumin/Globulin Ratio 0.8 (1.0-2.3); Alkaline Phosphatase 151 U/L (39-117); Bilirubin,Direct < 0.2 mg/dL (0-0.3); Bilirubin,Total < 0.2 mg/dL (0.1-1.0); Blood Urea Nitrogen 15 mg/dL (6-20); Carbon Dioxide 25 mmol/L (22-30); Chloride 101 mmol/L (96-108); Globulin 3.9 gm/dL (2.2-3.7); Glomerular Filtration Rate 107; Glucose 89 mg/dL (70-105); Lactate Dehydrogenase 123 U/L (135-225); Phosphorous 2.4 mg/dL (2.5-4.5); Potassium 3.4 mmol/L (3.3-5.1); Sodium 135 mmol/L (133-145); Triglycerides 267 mg/dL (<150); Uric Acid 4.3 mg/dL (2.5-8.0)
[2024-06-02] MEDS ORDERED: HYDROmorphone 0.5 MG/0.5 ML SYRINGE IV PRN (08:37)
[2024-06-02] MEDS: 0.9 % SODIUM CHLORIDE 10 ML SYRINGE IV SCH (09:13)
[2024-06-02] MEDS: HYDROmorphone 0.5 MG/0.5 ML SYRINGE IV PRN ×2 (12:24→18:59)
[2024-06-02] MEDS: oxyCODONE IR 5 MG TABLET PO PRN (17:15)
[2024-06-02] MEDS: PIPERACILLIN SODIUM/TAZOBACTAM 3.375 GM in DEXTROSE 5% IN WATER 50 ML IV ONE (18:59)
[2024-06-02] MEDS: PIPERACILLIN SODIUM/TAZOBACTAM 3.375 GM in DEXTROSE 5% IN WATER 100 ML IV SCH (23:01)
[2024-06-03] MEDS: HYDROmorphone 0.5 MG/0.5 ML SYRINGE IV PRN (11:29)
[2024-06-03] MEDS ORDERED: LIDOCAINE 1% 10 ML VIAL SQ ONE (11:35)
[2024-06-03] MEDS: HYDROmorphone 0.5 MG/0.5 ML SYRINGE IV ONE (14:17)
[2024-06-03] MEDS ORDERED: METOCLOPRAMIDE 10 MG/2 ML VIAL IV PRN (16:47)
[2024-06-04 07:47] LABS: Basophils # (Auto) 0.04 K/mcL (0.00-0.30); Basophils % (Auto) 0.3 % (0.0-2.0); Eosinophils % (Auto) 5.6 % (0.0-7.0); Hematocrit 32.3 % (40.1-51.0); Hemoglobin 9.7 g/dL (13.7-17.5); Lymphocytes # (Auto) 1.71 K/mcL (1.50-4.80); Lymphocytes % (Auto) 11.9 % (15.5-49.0); Mean Cell Volume 83.2 fL (80.0-100.0); Mean Platelet Volume 9.6 fL (8.8-12.5); Monocytes # (Auto) 0.91 K/mcL (0.10-0.90); Monocytes % (Auto) 6.3 % (1.0-12.0); Neutrophils % (Auto) 75.6 % (38.0-78.0); Platelet Count 438 K/mcL (140-440); RBC 3.88 M/mcL (4.63-6.08); Red Cell Distribution Width 18.9 % (11.5-14.5); WBC 14.4 K/mcL (4.5-11.0)
[2024-06-04 08:09] LABS: Blood Urea Nitrogen 26 mg/dL (6-20); Carbon Dioxide 29 mmol/L (22-30); Chloride 102 mmol/L (96-108); Glomerular Filtration Rate 102; Glucose 84 mg/dL (70-105); Potassium 4.2 mmol/L (3.3-5.1); Sodium 140 mmol/L (133-145)
[2024-06-04] MEDS ORDERED: ACETAMINOPHEN 1,000 MG/100 ML BAG IV PRN (10:38)
[2024-06-04] MEDS: LORazepam 2 MG/ML VIAL IV ONE (18:06)
[2024-06-05 06:18] LABS: Basophils # (Auto) 0.04 K/mcL (0.00-0.30); Basophils % (Auto) 0.3 % (0.0-2.0); Eosinophils # (Auto) 1.04 K/mcL (0.00-0.70); Eosinophils % (Auto) 6.9 % (0.0-7.0); Hematocrit 34.7 % (40.1-51.0); Hemoglobin 10.5 g/dL (13.7-17.5); Lymphocytes # (Auto) 1.71 K/mcL (1.50-4.80); Lymphocytes % (Auto) 11.3 % (15.5-49.0); Mean Cell Volume 82.2 fL (80.0-100.0); Mean Corpuscular HGB Conc 30.3 g/dL (31.0-36.0); Mean Platelet Volume 9.3 fL (8.8-12.5); Monocytes # (Auto) 0.91 K/mcL (0.10-0.90); Neutrophils % (Auto) 75.2 % (38.0-78.0); Platelet Count 472 K/mcL (140-440); RBC 4.22 M/mcL (4.63-6.08); WBC 15.1 K/mcL (4.5-11.0)
[2024-06-05 07:14] LABS: ALT/SGPT 13 U/L (<40); AST/SGOT 19 U/L (<40); Albumin 3.2 gm/dL (3.2-5.2); Albumin/Globulin Ratio 0.8 (1.0-2.3); Alkaline Phosphatase 154 U/L (39-117); Bilirubin,Direct < 0.2 mg/dL (0-0.3); Bilirubin,Total < 0.2 mg/dL (0.1-1.0); Blood Urea Nitrogen 19 mg/dL (6-20); Calcium 9.3 mg/dL (8.6-10.4); Carbon Dioxide 26 mmol/L (22-30); Chloride 100 mmol/L (96-108); Globulin 4.2 gm/dL (2.2-3.7); Glomerular Filtration Rate 107; Glucose 87 mg/dL (70-105); Lactate Dehydrogenase 98 U/L (135-225); Phosphorous 4.2 mg/dL (2.5-4.5); Sodium 141 mmol/L (133-145); Triglycerides 362 mg/dL (<150); Uric Acid 3.1 mg/dL (2.5-8.0)
[2024-06-05] MEDS: 0.9 % SODIUM CHLORIDE 10 ML SYRINGE IV PRN (10:24)
[2024-06-05] MEDS: HYDROmorphone 0.5 MG/0.5 ML SYRINGE IV PRN (12:11)
[2024-06-06 06:27] LABS: Basophils # (Auto) 0.02 K/mcL (0.00-0.30); Basophils % (Auto) 0.1 % (0.0-2.0); Eosinophils # (Auto) 0.88 K/mcL (0.00-0.70); Eosinophils % (Auto) 6.1 % (0.0-7.0); Hematocrit 34.8 % (40.1-51.0); Hemoglobin 10.7 g/dL (13.7-17.5); Lymphocytes # (Auto) 1.78 K/mcL (1.50-4.80); Lymphocytes % (Auto) 12.4 % (15.5-49.0); Mean Cell Volume 81.9 fL (80.0-100.0); Mean Corpuscular HGB Conc 30.7 g/dL (31.0-36.0); Mean Platelet Volume 9.6 fL (8.8-12.5); Monocytes # (Auto) 1.09 K/mcL (0.10-0.90); Monocytes % (Auto) 7.6 % (1.0-12.0); Neutrophils % (Auto) 73.5 % (38.0-78.0); Platelet Count 499 K/mcL (140-440); RBC 4.25 M/mcL (4.63-6.08); Red Cell Distribution Width 18.8 % (11.5-14.5); WBC 14.4 K/mcL (4.5-11.0)
[2024-06-06 07:02] LABS: ALT/SGPT 30 U/L (<40); AST/SGOT 28 U/L (<40); Albumin 3.3 gm/dL (3.2-5.2); Albumin/Globulin Ratio 0.8 (1.0-2.3); Alkaline Phosphatase 187 U/L (39-117); Bilirubin,Direct < 0.2 mg/dL (0-0.3); Bilirubin,Total < 0.2 mg/dL (0.1-1.0); Blood Urea Nitrogen 23 mg/dL (6-20); Calcium 9.3 mg/dL (8.6-10.4); Carbon Dioxide 30 mmol/L (22-30); Chloride 97 mmol/L (96-108); Globulin 4.4 gm/dL (2.2-3.7); Glomerular Filtration Rate 102; Glucose 95 mg/dL (70-105); Lactate Dehydrogenase 105 U/L (135-225); Sodium 140 mmol/L (133-145); Triglycerides 333 mg/dL (<150); Uric Acid 3.3 mg/dL (2.5-8.0)
[2024-06-06 13:30] VITALS: TEMP 98.8; O2SAT 97
== END 2024-06-06 15:20 | disposition home or self-care (01) | DRG 698 ==
LOC: ED 17:29 → ICU 22:43 → MEDSUR 05-29 14:44
PROVIDERS: ADMIT Internal Medicine; ATTEND Internal Medicine